=== PATIENT | female | born 1960 | race Caucasian/White ===

== ENCOUNTER → 2019-12-10 | Outpatient (CLI) | payer BC ==
--- NOTE | 2019-12-16 09:56 | MM ---
Reason for exam: screening (asymptomatic). History: Patient is postmenopausal. Family history of breast cancer in maternal grandmother at age 50, breast cancer in sister at age 30, and breast cancer in aunt at age 30. Physical Findings: A clinical breast exam by your physician is recommended on an annual basis and results should be correlated with mammographic findings. MG 3D Screening Mammo W/Cad Bilateral CC and MLO view(s) were taken. The breast tissue is heterogeneously dense. This may lower the sensitivity of mammography. Finding #1: There is an oval mass in the lower outer quadrant of the right breast. Finding #2: There are indeterminate calcifications in the lower inner quadrant of the left breast. ASSESSMENT: Incomplete: need additional imaging evaluation, BI-RAD 0 RECOMMENDATION: Special view mammogram and ultrasound of the left breast. [facility] will attempt to contact patient to return for supplemental views and ultrasound.
== END | disposition home or self-care (01) ==
LOC: RADMAMWWP 16:05
PROVIDERS: ATTEND Obstetrics & Gynecology
DX: Z12.31 Encounter for screening mammogram for malignant neoplasm of breast (principal); Z80.3 Family history of malignant neoplasm of breast
CPT/HCPCS: 77063; 77067

== ENCOUNTER → 2019-12-18 | Outpatient (CLI) | payer BC ==
--- NOTE | 2019-12-21 08:16 | MM ---
Reason for exam: additional evaluation requested from abnormal screening. Last mammogram was performed less than 1 month ago. History: Patient is postmenopausal. Family history of breast cancer in maternal grandmother at age 50, breast cancer in sister at age 30, and breast cancer in aunt at age 30. Physical Findings: Nurse did not find any significant physical abnormalities on exam. MG 3D Work Up W/Cad LT ML with magnification and ML view(s) were taken of the left breast. Prior study comparison: December 10, 2019, bilateral MG 3d screening mammo w/cad. Finding: There are typically benign round coarse calcifications in the left breast. These results were verbally communicated with the patient and result sheet given to the patient on 12/18/19. ASSESSMENT: Probably benign, BI-RAD 3 RECOMMENDATION: Follow-up diagnostic mammogram of the left breast in 6 months.
--- NOTE | 2019-12-21 08:19 | USB ---
Reason for exam: additional evaluation requested from abnormal screening. History: Patient is postmenopausal. Family history of breast cancer in maternal grandmother at age 50, breast cancer in sister at age 30, and breast cancer in aunt at age 30. US Breast Workup Limited RT Right limited breast ultrasound including focal area of concern, retroareolar and axilla demonstrates a 0.7 x 0.5 x 1.0cm oval, hypoechoic lesion at 9 o'clock, questionable tissue in fiborglandular island. These results were verbally communicated with the patient and result sheet given to the patient on 12/18/19. ASSESSMENT: Probably benign, BI-RAD 3 RECOMMENDATION: Follow-up diagnostic mammogram and ultrasound of the right breast in 6 months.
== END | disposition home or self-care (01) ==
LOC: RADMAMWWP 13:19
PROVIDERS: ATTEND Obstetrics & Gynecology
DX: R92.8 Other abnormal and inconclusive findings on diagnostic imaging of breast (principal)
CPT/HCPCS: 77061; 77065

== ENCOUNTER → 2020-06-20 | Outpatient (CLI) | payer BC ==
--- NOTE | 2020-06-20 10:17 | MM ---
Reason for exam: follow-up at short interval from prior study. Last mammogram was performed 6 months ago. History: Patient is postmenopausal. Family history of breast cancer in maternal grandmother at age 50, breast cancer in sister at age 30, and breast cancer in aunt at age 30. Taking estrogen for 1 year beginning at age 59. Taking progesterone for 1 year beginning at age 59. Physical Findings: Nurse did not find any significant physical abnormalities on exam. MG 3D Diag Mammo W/Cad RT CC, MLO, and XCCL view(s) were taken of the right breast. Prior study comparison: December 18, 2019, left breast MG 3d work up w/cad LT. December 10, 2019, bilateral MG 3d screening mammo w/cad. The breast tissue is heterogeneously dense. This may lower the sensitivity of mammography. 1.2cm low density nodule retroareolar right breast stable for 6 months. These results were verbally communicated with the patient and result sheet given to the patient on 06/20/20. ASSESSMENT: Incomplete: need additional imaging evaluation, BI-RAD 0 RECOMMENDATION: Ultrasound of the right breast.
--- NOTE | 2020-06-20 10:37 | USB ---
Reason for exam: additional evaluation requested from abnormal screening. History: Patient is postmenopausal. Family history of breast cancer in maternal grandmother at age 50, breast cancer in sister at age 30, and breast cancer in aunt at age 30. Taking estrogen for 1 year beginning at age 59. Taking progesterone for 1 year beginning at age 59. US Breast Limited RT Right limited breast ultrasound including focal area of concern, retroareolar and axilla demonstrates a 0.7 x 0.7 x 0.5cm hypoechoic lesion at 9 o'clock versus 10 x 7 x 5mm, sable to smaller, benign and a 0.8 x 0.4 x 0.4cm cystic lesion at the posterior nipple/1 o'clock, some residual internal debris present. These results were verbally communicated with the patient and result sheet given to the patient on 06/20/20. ASSESSMENT: Probably benign, BI-RAD 3 RECOMMENDATION: Follow-up diagnostic mammogram of both breasts in 6 months.
== END ==
LOC: RADMAMWWP 08:10
PROVIDERS: ATTEND Obstetrics & Gynecology
DX: N60.01 Solitary cyst of right breast (principal); N63.41 Unspecified lump in right breast, subareolar; Z78.0 Asymptomatic menopausal state; Z80.3 Family history of malignant neoplasm of breast
CPT/HCPCS: 77061; 77065

== ENCOUNTER → 2021-02-17 | Outpatient (CLI) | payer BC ==
--- NOTE | 2021-02-17 13:00 | USB ---
EXAMINATION TYPE: US breast limited RT DATE OF EXAM: 02/17/2021 COMPARISON: 06/20/2020, 12/18/2019, 12/10/2019 CLINICAL HISTORY: R 92.3 ABN MAMM. Findings: Right breast was scanned with ultrasound from 8-10 o'clock and in the retroareolar region and axilla. In the right breast at 9:00, there is a 0.6 x 0.5 x 0.8 cm hypoechoic lesion which appears similar to the prior examination. IMPRESSION: No significant change in the right breast lesion at 9:00 since December 2019. Follow-up bilateral diagnostic mammogram and right breast ultrasound is recommended in 12 months for the right breast mass and left breast calcifications. BI-RADS 3, probably benign.
--- NOTE | 2021-02-17 14:15 | MM ---
Reason for exam: additional evaluation requested from prior study. Last mammogram was performed 8 months ago. History: Patient is postmenopausal. Family history of breast cancer in maternal grandmother at age 50, breast cancer in sister at age 30, and breast cancer in aunt at age 30. Taking estrogen for 1 year beginning at age 59. Taking progesterone for 1 year beginning at age 59. Physical Findings: Nurse did not find any significant physical abnormalities on exam. MG 3D Diag Mammo W/Cad PANCHITO Bilateral CC and MLO view(s) were taken. Prior study comparison: June 20, 2020, right breast MG 3d diag mammo w/cad RT. December 18, 2019, left breast MG 3d work up w/cad LT. There are scattered fibroglandular densities. There is an unchanged oval asymmetry in the right breast at approximately 9 o'clock and ultrasound is recommended. There are two groupings of coarse calcifications in the left lower inner breast measuring 0.3 x 0.2cm, not significantly changed from prior. These results were verbally communicated with the patient and result sheet given to the patient on 02/17/21. ASSESSMENT: Incomplete: need additional imaging evaluation, BI-RAD 0 RECOMMENDATION: Ultrasound of the right breast. SAMANTAD
== END | disposition home or self-care (01) ==
LOC: RADMAMWWP 11:05
PROVIDERS: ATTEND Obstetrics & Gynecology
DX: N64.59 Other signs and symptoms in breast (principal); Z78.0 Asymptomatic menopausal state; Z80.3 Family history of malignant neoplasm of breast
CPT/HCPCS: 77062; 77066

== ENCOUNTER → 2021-07-03 | Outpatient (CLI) | payer BC ==
--- NOTE | 2021-07-04 07:21 | MR ---
EXAMINATION TYPE: MR brain/cspine wo DATE OF EXAM: 07/03/2021 COMPARISON: NONE HISTORY: Head pain, neck pain, tingling in feet and hands, and fatigue for a few years but getting wo rse. TECHNIQUE: Multiplanar, multisequence imaging of the brain and brainstem and cervical spine are all p erformed without IV contrast. FINDINGS: BRAIN: Diffusion weighted images demonstrate no evidence of a recent infarct or other diffusion abnormality. The ventricular system and cisternal spaces are normal in size and appearance. The brain volume is a ge appropriate. Occasional scattered focus of T2 hyperintensity seen throughout the white matter bila terally. Approximately 5 small scattered lesions are seen. Midline structures demonstrate normal morphology. The craniocervical junction appears within normal limits. Normal vascular flow voids are present. The visualized sinuses are clear and the globes are i ntact. IMPRESSION: Mild to minimal nonspecific white matter changes. C-SPINE: FINDINGS: Sagittal images of the cervical spine show the craniocervical junction to appear within nor mal limits. The cervical and upper thoracic spinal cord is normal in course, caliber, and signal. Th ere is grade 1 retrolisthesis C5 on C6. Mild disc space narrowing C5-C6 otherwise the vertebral body and intravertebral disk heights are normal. Small hemangioma involving the C6 vertebra noted sagittal image 10. Axial images show C2-C3 level to appear within normal limits. Axial images at C3-C4 level show left-sided uncovertebral facet degenerative changes causing mild to moderate left-sided neural foraminal narrowing. Axial images at C4-C5 level show uncovertebral facet degenerative changes causing moderate left-sided neural foraminal narrowing. Axial images at C5-C6 level show spondylolisthesis with mild broad-based posterior disc protrusion, t here is [id number] bilateral neural foraminal narrowing. Axial images at C6-C7 and C7-T1 levels appear within normal limits IMPRESSION: Spondylolisthesis C5-C6 level. Multilevel degenerative changes upper to mid cervical spin e as detailed above.
== END | disposition home or self-care (01) ==
LOC: RADMRIMAIN 17:46
PROVIDERS: ATTEND Psychiatry & Neurology Neurology
DX: M43.12 Spondylolisthesis, cervical region (principal); M47.812 Spondylosis without myelopathy or radiculopathy, cervical region
CPT/HCPCS: 70551; 72141

== ENCOUNTER → 2022-02-27 | Outpatient (CLI) | payer BC ==
--- NOTE | 2022-02-27 13:56 | MM ---
Reason for Exam: Follow-up at short interval from prior study. Last screening mammogram was performed 12 month(s) ago. Patient History: Menarche at age 10. First Full-Term at age 17. Postmenopausal. Currently using Estrogen, beginning at age 59 for 1 year. Currently using Progesterone, beginning at age 59 for 1 year. Maternal grandmother had breast cancer, age 50. Maternal aunt had breast cancer, age 30. Sister had breast cancer, age 30. Risk Values: Saundra 5 year model risk: 2.9%. NCI Lifetime model risk: 12.1%. Prior Study Comparison: 12/10/2019 Bilateral Screening Mammogram, [facility]. 12/18/2019 Left Diagnostic Mammogram, [facility]. 06/20/2020 Right Diagnostic Mammogram, [facility]. 02/17/2021 Bilateral Diagnostic Mammogram, [facility]. Tissue Density: The breast tissue is heterogeneously dense. This may lower the sensitivity of mammography. Findings: Analyzed By CAD. A 1.2 cm circumscribed oval isodense nodule subareolar right breast anterior depth appears unchanged. Global asymmetry upper-outer quadrant right breast unchanged. Groups of coarse calcifications left breast also unchanged. No significant change from prior exams. Overall Assessment: Incomplete: need additional imaging evaluation, BI-RAD 0 Management: Diagnostic Breast Ultrasound of the right breast. Electronically signed and approved by: Jaye Grider M.D. Radiologist
--- NOTE | 2022-02-27 15:34 | USB ---
Patient History: Menarche at age 10. First Full-Term at age 17. Postmenopausal. Currently using Estrogen, beginning at age 59 for 1 year. Currently using Progesterone, beginning at age 59 for 1 year. Maternal grandmother had breast cancer, age 50. Maternal aunt had breast cancer, age 30. Sister had breast cancer, age 30. Risk Values: Saundra 5 year model risk: 2.9%. NCI Lifetime model risk: 12.1%. Technique: Method: Whole Breast Handheld. Prior Study Comparison: 12/18/2019 Left Diagnostic Mammogram, [facility]. 06/20/2020 Right Diagnostic Mammogram, [facility]. 02/17/2021 Bilateral Diagnostic Mammogram, [facility]. Findings: The whole breast of the right breast, the axilla of the right breast and the retroareolar of the right breast were scanned. Limited ultrasound subareolar and periareolar right breast is getting extended to include the 9 to 10:00 position in the interval. At the 9:00 position, 11 cm from the nipple, there is a similar oval hypoechoic structure posterior to transverse position measuring 10 x 9 x 5 mm. This is in comparison to 9 x 6 x 6 mm, previously. Overall appearance is similar. Given the slight increase in size, as can be reassessed at follow-up. Suspected debris filled cyst. At the 9:00 position, 1 cm from the nipple, there is a 10 x 9 x 5 mm oval hypoechoic lesion without internal vascularity, again, probably a debris-filled cyst but not seen previously. Possible mammographic correlate. Reassess in 6 months. At the 10:00 position, 1 cm from the nipple, there is a benign 9 mm cyst. No other solid or cystic lesion or axillary lymphadenopathy. Overall Assessment: Probably benign, BI-RAD 3 Management: Diagnostic Breast Ultrasound of the right breast in 6 months. For reassessment of the two 9:00 lesions, possibly debris-filled cyst. Patient should continue monthly self breast exams. These results should not preclude additional follow-up of suspicious palpable abnormalities. Results were given to the patient verbally at the time of exam. Electronically signed and approved by: Jaye Grider M.D. Radiologist
== END | disposition home or self-care (01) ==
LOC: RADMAMWWP 13:02
PROVIDERS: ATTEND Obstetrics & Gynecology
DX: R92.8 Other abnormal and inconclusive findings on diagnostic imaging of breast (principal); Z78.0 Asymptomatic menopausal state; Z80.3 Family history of malignant neoplasm of breast
CPT/HCPCS: 77062; 77066

== ENCOUNTER → 2022-10-01 | Outpatient (CLI) | payer BC | END | disposition home or self-care (01) | LOC: RADUSWWP 14:18 | PROVIDERS: ATTEND Obstetrics & Gynecology | DX: Z53.9 Procedure and treatment not carried out, unspecified reason (principal) ==

== ENCOUNTER → 2023-03-15 | Outpatient (CLI) | payer BC ==
--- NOTE | 2023-03-15 10:51 | MM ---
Reason for Exam: Follow-up at short interval from prior study. Last mammogram was performed 1 year(s) and 1 month(s) ago. Patient History: Menarche at age 10. First Full-Term at age 17. Postmenopausal. Currently using Estrogen, beginning at age 59 for 1 year. Currently using Progesterone, beginning at age 59 for 1 year. Maternal grandmother had breast cancer, age 50. Maternal aunt had breast cancer, age 30. Sister had breast cancer, age 30. Risk Values: Saundra 5 year model risk: 3.0%. NCI Lifetime model risk: 11.8%. Prior Study Comparison: 12/18/2019 Left Diagnostic Mammogram, [facility]. 06/20/2020 Right Diagnostic Mammogram, [facility]. 02/17/2021 Bilateral Diagnostic Mammogram, [facility]. 02/27/2022 Bilateral MG 3D diag mammo w/cad PANCHITO, [facility]. Tissue Density: The breast tissue is heterogeneously dense. This may lower the sensitivity of mammography. Findings: Analyzed By CAD. Chronic bilateral low density nodularity remains unchanged. Some dystrophic/popcorn calcifications on the left are unchanged. Grouped microcalcifications 6:00 left breast remain unchanged for one year. Noted to be slightly increased from older priors. An area of 7:00 focal asymmetry far inferiorly has increased. Further ultrasound evaluation is recommended. Overall Assessment: Incomplete: need additional imaging evaluation, BI-RAD 0 Management: Diagnostic Breast Ultrasound of the left breast. Electronically signed and approved by: Jaye Grider M.D. Radiologist
--- NOTE | 2023-03-15 11:19 | USB ---
Reason for Exam: Additional evaluation requested from abnormal screening. Patient History: Menarche at age 10. First Full-Term at age 17. Postmenopausal. Currently using Estrogen, beginning at age 59 for 1 year. Currently using Progesterone, beginning at age 59 for 1 year. Maternal grandmother had breast cancer, age 50. Maternal aunt had breast cancer, age 30. Sister had breast cancer, age 30. Risk Values: Saundra 5 year model risk: 3.0%. NCI Lifetime model risk: 11.8%. Technique: Method: Targeted. Prior Study Comparison: 06/20/2020 Right Diagnostic Mammogram, [facility]. 02/17/2021 Bilateral Diagnostic Mammogram, [facility]. 02/27/2022 Bilateral MG 3D diag mammo w/cad PANCHITO, [facility]. Findings: The lower section of the breast of the left breast, the axilla of the left breast and the retroareolar of the left breast were scanned. Targeted ultrasound left breast 6-7 o'clock including the subareolar region and axilla. There is a small 1.1 x 0.8 x 0.4 cm complex cyst versus cyst cluster. This is smaller than the mammographic finding. As there is no ultrasound correlate for the larger 2.6 cm, and may represent a prominent island of fibroglandular tissue. Six-month follow-up recommended. Overall Assessment: Probably benign, BI-RAD 3 Management: Diagnostic Mammogram of the left breast in 6 months. A clinical breast exam by your physician is recommended on an annual basis and results should be correlated with mammographic findings. This exam should not preclude additional follow-up of suspicious palpable abnormalities. Results were given to the patient verbally at the time of exam. Electronically signed and approved by: Jaye Grider M.D. Radiologist
== END | disposition home or self-care (01) ==
LOC: RADMAMWWP 10:01
PROVIDERS: ATTEND Obstetrics & Gynecology
DX: R92.333 Mammographic heterogeneous density, bilateral breasts (principal); Z78.0 Asymptomatic menopausal state; Z80.3 Family history of malignant neoplasm of breast
CPT/HCPCS: 77062; 77066

== ENCOUNTER → 2023-10-19 | Outpatient (CLI) | payer BC, MEDICARE ==
--- NOTE | 2023-10-23 08:10 | BMR ---
EXAM DATE: 10/19/2023 EXAM DESCRIPTION: MRI-Breast Bilat (W/WO Contrast) INDICATION: >20% lifetime risk for malignancy presenting for high risk surveillance COMPARISON: Comparison is made with relevant prior imaging in PACS. CONTRAST: 11.5 cc of Gadavist TECHNIQUE: Multiplanar MRI imaging of both breasts was performed with a dedicated breast coil, before and after intravenous administration of gadolinium contrast, using the standard breast mass protocol. Computer-aided detection was used to aid in interpretation. Study was performed at [facility] with Radiologic interpretation by [facility]. FINDINGS: General breast composition: There are scattered areas of fibroglandular tissue Background parenchymal enhancement: Marked which limits the evaluation of small masses and nonmass enhancement. FINDINGS: Right Breast: Review of the dynamic contrast-enhanced series shows oval circumscribed enhancing mass measuring 0.8 x 0.6 x0.4 cm in the central breast which corresponds to a sonographic mass seen 9 o'clock, 1 cm from the nipple on 02/27/2022, given 2 years of stability and no suspicious features this is considered benign. No rapidly enhancing masses, suspicious enhancement patterns or other abnormalities. The T2 weighted series shows scattered benign cysts. Left Breast: Review of the dynamic contrast-enhanced series shows oval circumscribed enhancing mass measuring 0.9 x 0.8 x 0.7 cm in the lower central breast at anterior depth (504:295, 601:70) with washout kinetics. Miscellaneous findings:Small hiatal hernia. IMPRESSION: Marked background parenchymal enhancement which limits the evaluation of small masses and nonmass enhancement. [facility]
== END | disposition home or self-care (01) ==
LOC: RADMRIMAIN 14:03
PROVIDERS: ATTEND Internal Medicine
DX: Z12.31 Encounter for screening mammogram for malignant neoplasm of breast (principal)
CPT/HCPCS: 77049